=== PATIENT | male | born 1945 | race Caucasian/White ===

== ENCOUNTER 2021-02-19 09:16 | Emergency (ER) | payer MEDICARE, OTHER ==
--- NOTE | 2021-02-19 10:52 | EDM.PDOC ---
ED HPI GENERAL MEDICAL PROBLEM - General Chief Complaint: General Stated Complaint: WEAKNESS Time Seen by Provider: 02/19/21 09:50 Source of Information: Reports: Patient, Family History Limitations: Reports: No Limitations - History of Present Illness INITIAL COMMENTS - FREE TEXT/NARRATIVE: 75-year-old male who underwent a dental procedure 2 days ago, only with local anesthesia, who also has chronic Parkinson's is brought in today by his because of increased tremor, right hip discomfort after falling, and weakness. He also feels like his speech is not right and things just are not normal. He did fall and bumped his head and is on Coumadin, his INR prior to the procedure was 3.7. He ambulated several steps into the wheelchair to come in and look stable. His vitals are normal. He has no nausea and vomiting, no diarrhea, denies any pain other than his right hip. Onset: Unknown/Unsure (Symptoms have kind of evolved over the past 2 days after his dental procedure) Associated Symptoms: Reports: Confusion (Mild intermittent confusion), Headaches (Mild intermittent headaches), Weakness (Especially lower extremities), Other (Increased tremor). Denies: Cough, Fever/Chills, Nausea/Vomiting Right Hip Pain Score (Numeric/FACES): 5 - Related Data Allergies Allergy/AdvReac Type Severity Reaction Status Date / Time Penicillins Allergy Intermediate Hives Verified 08/23/20 08:27 hydrochlorothiazide AdvReac Cough Verified 08/23/20 08:27 [From Prinzide] lisinopril [From Prinzide] AdvReac Cough Verified 08/23/20 08:27 Home Meds: Home Meds ARIPiprazole [Abilify] 15 mg PO BEDTIME 01/22/13 [History] Omeprazole 20 mg PO DAILY 01/22/13 [History] Warfarin Sliding Scale [Coumadin Sliding Scale] 8 mg PO BEDTIME 01/22/13 [History] Gabapentin [Neurontin] 600 mg PO BEDTIME 02/24/13 [History] Naproxen 220 mg PO DAILY PRN 02/24/13 [History] oxyCODONE HCl/Acetaminophen [oxyCODONE-Acetaminophen 5-325] 1 tab PO Q6H PRN 02/24/13 [History] Escitalopram Oxalate [Lexapro] 10 mg PO DAILY 08/23/20 [History] NIFEdipine [Nifedipine ER] 60 mg PO DAILY 08/23/20 [History] Carbidopa/Levodopa [Sinemet 25-100 mg Tablet] 02/19/21 [History] Clindamycin HCl 300 mg PO 02/19/21 [History] Pramipexole Di-HCl [Mirapex] 02/19/21 [History] Social & Family History - Tobacco Use Tobacco Use Status *Q: Never Tobacco User Second Hand Smoke Exposure: No ED ROS GENERAL - Review of Systems Review Of Systems: See Below Constitutional: Reports: Malaise. Denies: Fever, Chills HEENT: Denies: Vision Change Respiratory: Denies: Shortness of Breath Cardiovascular: Denies: Chest Pain GI/Abdominal: Reports: No Symptoms : Reports: No Symptoms Musculoskeletal: Reports: Other (Right hip and groin pain after falling) Skin: Denies: Bruising Neurological: Reports: Confusion, Dizziness, Headache, Weakness, Other (Slight dysarthria or expressive aphasia with increased tremors) Psychiatric: Reports: No Symptoms ED EXAM, GENERAL - Physical Exam Exam: See Below Exam Limited By: No Limitations General Appearance: Alert, No Apparent Distress Head: Atraumatic Neck: Supple, Non-Tender Respiratory/Chest: No Respiratory Distress, Lungs Clear Cardiovascular: Regular Rate, Rhythm GI/Abdominal: Soft, Non-Tender Extremities: Other (Patient has some palpation tenderness over the lateral right hip and the right groin but minimal pain with passive range of motion including internal and external rotation. He can actively flex his hip against gravity without much discomfort) Neurological: Alert, Oriented, No Motor/Sensory Deficits Psychiatric: Normal Affect, Normal Mood Skin Exam: Warm, Dry Course - Vital Signs Last Recorded V/S: Last Vital Signs Temp 98.6 F 02/19/21 09:42 Pulse 83 02/19/21 11:14 Resp 16 02/19/21 09:42 BP 149/92 H 02/19/21 11:14 Pulse Ox 96 02/19/21 11:14 - Orders/Labs/Meds Orders: Active Orders 24 hr Category Date Time Status Pelvis 1V or 2V [CR] Stat Exams 02/19/21 10:05 Taken Labs: Laboratory Tests 02/19/21 02/19/21 02/19/21 Range/Units 10:05 10:55 10:55 WBC 5.8 (4.5-11.0) K/uL RBC 5.41 (4.30-5.90) M/uL Hgb 16.3 H (12.0-15.0) g/dL Hct 44.8 (40.0-54.0) % MCV 83 (80-98) fL MCH 30 (27-31) pg MCHC 36 (32-36) % Plt Count 112 L (150-400) K/uL Neut % (Auto) 81.3 H (36-66) % Lymph % (Auto) 7.9 L (24-44) % [place] % (Auto) 9.6 H (2-6) % Eos % (Auto) 0.7 L (2-4) % Baso % (Auto) 0.5 (0-1) % PT 38.6 H (9.2-10.6) sec INR 3.9 Sodium (140-148) mmol/L Potassium (3.6-5.2) mmol/L Chloride (100-108) mmol/L Carbon Dioxide (21-32) mmol/L Anion Gap (5.0-14.0) mmol/L BUN (7-18) mg/dL Creatinine (0.8-1.3) mg/dL Est Cr Clr Drug Dosing mL/min Estimated GFR (MDRD) (>60) Glucose (74-106) mg/dL Calcium (8.5-10.1) mg/dL Urine Color Yellow (YELLOW) Urine Appearance Clear (CLEAR) Urine pH 5.5 (5.0-8.0) Ur Specific [place] >= 1.030 (1.008-1.030) Urine Protein 100 H (NEGATIVE) mg/dL Urine Glucose (UA) 500 H (NEGATIVE) mg/dL Urine Ketones 15 H (NEGATIVE) mg/dL Urine Occult Blood Negative (NEGATIVE) Urine Nitrite Positive H (NEGATIVE) Urine Bilirubin Small H (NEGATIVE) Urine Urobilinogen 0.2 (0.2-1.0) EU/dL Ur Leukocyte Esterase Negative (NEGATIVE) Urine RBC Not seen (0-5) Urine WBC 0-5 (0-5) Ur Epithelial Cells Rare Amorphous Sediment Few Urine Bacteria Not seen Urine Mucus Rare 02/19/21 Range/Units 10:55 WBC (4.5-11.0) K/uL RBC (4.30-5.90) M/uL Hgb (12.0-15.0) g/dL Hct (40.0-54.0) % MCV (80-98) fL MCH (27-31) pg MCHC (32-36) % Plt Count (150-400) K/uL Neut % (Auto) (36-66) % Lymph % (Auto) (24-44) % [place] % (Auto) (2-6) % Eos % (Auto) (2-4) % Baso % (Auto) (0-1) % PT (9.2-10.6) sec INR Sodium 132 L (140-148) mmol/L Potassium 3.6 (3.6-5.2) mmol/L Chloride 97 L (100-108) mmol/L Carbon Dioxide 28 (21-32) mmol/L Anion Gap 10.6 (5.0-14.0) mmol/L BUN 25 H (7-18) mg/dL Creatinine 1.3 (0.8-1.3) mg/dL Est Cr Clr Drug Dosing 56.34 mL/min Estimated GFR (MDRD) 54 L (>60) Glucose 248 H (74-106) mg/dL Calcium 8.1 L (8.5-10.1) mg/dL Urine Color (YELLOW) Urine Appearance (CLEAR) Urine pH (5.0-8.0) Ur Specific [place] (1.008-1.030) Urine Protein (NEGATIVE) mg/dL Urine Glucose (UA) (NEGATIVE) mg/dL Urine Ketones (NEGATIVE) mg/dL Urine Occult Blood (NEGATIVE) Urine Nitrite (NEGATIVE) Urine Bilirubin (NEGATIVE) Urine Urobilinogen (0.2-1.0) EU/dL Ur Leukocyte Esterase (NEGATIVE) Urine RBC (0-5) Urine WBC (0-5) Ur Epithelial Cells Amorphous Sediment Urine Bacteria Urine Mucus - Re-Assessments/Exams Free Text/Narrative Re-Assessment/Exam: 02/19/21 11:[address] and pelvic x-ray were obtained. Pelvic x-ray is negative, he has a total hip on the right side. He still presented as stable and neurologically intact. Head CT was also normal as follows IMPRESSION: 1. Negative for acute traumatic abnormality. 2. Mild nonspecific cerebral white matter disease which is most likely due to aging/chronic microvascular ischemia. When I informed the patient and his that the above were normal, she had additional occurrence about his hydration status, his dark urine, and his abn ormal INR. CBC and BMP as well as INR were added, UA is pending. 02/19/21 13:08 UA showed no infection, CBC was normal but INR was still elevated at 3.9. I recommended holding his Coumadin 1 night and then resuming his regular dose and rechecking on Sunday. Push fluids and stay hydrated, and return if issues such as bleeding or increased weakness. Departure - Departure Time of Disposition: 11:51 Disposition: Home, Self-Care 01 Clinical Impression: Generalized weakness, Supratherapeutic INR Contusion, hip Qualifiers: Encounter type: initial encounter Laterality: right Qualified Code(s): S70.01XA - Contusion of right hip, initial encounter - Discharge Information Instructions: Weakness Referrals: Sachin Hawkins MD [Primary Care Provider] - Forms: ED Department Discharge Care Plan Goals: Consider holding your Coumadin tonight and resume regular dosage tomorrow and recheck on Sunday. Return anytime if worsening such as active bleeding or increased weakness. Stay hydrated. Increase activity as tolerated. Sepsis Event Note (ED) - Focused Exam Vital Signs: Vital Signs Temp Pulse Resp BP Pulse Ox 02/19/21 11:14 83 149/92 H 96 02/19/21 10:14 83 123/74 02/19/21 09:42 98.6 F 86 16 142/85 H 97 - My Orders Last 24 Hours: My Active Orders 02/19/21 10:05 Pelvis 1V or 2V [CR] Stat - Assessment/Plan Last 24 Hours: My Active Orders 02/19/21 10:05 Pelvis 1V or 2V [CR] Stat
--- NOTE | 2021-02-19 11:07 | CRLCT ---
For Patients: As a result of the Century Cures Act, medical imaging exams and procedure reports are released immediately into your electronic medical record. You may view this report before your referring provider. If you have questions, please contact your health care provider. INDICATION: Fell last night. TECHNIQUE: Scanning of the head was performed without IV contrast material. Coronal and sagittal reconstructions were obtained. COMPARISON: Head MRI of 04/06/2014 FINDINGS: No acute hemorrhage or positive mass effect is demonstrated. No calvarial or obvious facial fracture is identified. The visualized paranasal and mastoid sinuses are clear. The ventricles and other subarachnoid spaces are within normal limits for the patient`s age. There is mild nonspecific decreased attenuation in the cerebral white matter which is most likely due to aging/chronic microvascular ischemic disease. IMPRESSION: 1. Negative for acute traumatic abnormality. 2. Mild nonspecific cerebral white matter disease which is most likely due to aging/chronic microvascular ischemia. Please note that all CT scans at this facility use dose modulation, iterative reconstruction, and/or weight-based dosing when appropriate to reduce radiation dose to as low as reasonably achievable. Dictated by Michel Bravo MD @ 02/19/2021 11:06:10 AM (Electronically Signed)
[2021-02-19 11:14] VITALS: BP 149/92; PULSE 83
--- NOTE | 2021-02-21 09:26 | CR ---
Pelvis 1V or 2V CLINICAL HISTORY: Pain, fall FINDINGS: Patient has a right hip arthroplasty. Components appear well seated. Bones are osteopenic. 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
== END 2021-02-19 11:51 | disposition home or self-care (01) ==
LOC: JP.ED 09:16
DX: S70.01XA Contusion of right hip, initial encounter (principal); R53.1 Weakness; D68.8 Other specified coagulation defects; W19.XXXA Unspecified fall, initial encounter; Z88.0 Allergy status to penicillin; Z88.8 Allergy status to other drugs, medicaments and biological substances; Z79.899 Other long term (current) drug therapy; Z79.01 Long term (current) use of anticoagulants
CPT/HCPCS: 36415; 70450; 72170; 72170-26; 80048; 81001; 85025; 85610; 99285-25

== ENCOUNTER 2021-04-30 15:40 | Emergency (ER) | payer MEDICARE, OTHER ==
[2021-04-30 15:56] VITALS: PULSE 71
[2021-04-30] MEDS ORDERED: Sodium Chloride 0.9% 10 ML Syringe FLUSH PRN (16:46)
[2021-04-30 17:21] VITALS: BP 126/69
[2021-04-30] MEDS ORDERED: Iopamidol 755 Mg/ML 100 ML Bottle IV SCH (17:30)
[2021-04-30] MEDS ORDERED: Sodium Chloride 0.9% 100 ML IV SCH (17:30)
== END 2021-04-30 18:48 | disposition home or self-care (01) ==
LOC: JP.ED 15:40
DX: G45.9 Transient cerebral ischemic attack, unspecified (principal); E11.9 Type 2 diabetes mellitus without complications; Z88.0 Allergy status to penicillin; Z88.8 Allergy status to other drugs, medicaments and biological substances; Z79.01 Long term (current) use of anticoagulants; Z79.899 Other long term (current) drug therapy
CPT/HCPCS: 36415; 70450; 70496; 70498; 80053; 83605; 84484; 85025; 85610; 93005; 99284; Q9967; 93010; 99283

== ENCOUNTER 2021-12-18 12:15 | Emergency (ER) | payer MEDICARE, OTHER | END 2021-12-18 13:08 | disposition home or self-care (01) | LOC: JP.ED 12:15 | DX: S61.452A Open bite of left hand, initial encounter (principal); W55.01XA Bitten by cat, initial encounter | CPT/HCPCS: 99283 ==

== ENCOUNTER 2022-05-18 07:49 | Day surgery (SDC) | payer MEDICARE, OTHER ==
[2022-05-18] MEDS ORDERED: Propofol 200 MG/20 ML SDV ONE ×2 (07:54→10:15)
[2022-05-18] MEDS ORDERED: fentaNYL 100 MCG/2 ML SDV ONE (07:54)
[2022-05-18] MEDS ORDERED: Lactated Ringers 1,000 ML IV SCH (08:15)
[2022-05-18 11:31] VITALS: BP 132/78; PULSE 72
== END 2022-05-18 11:41 | disposition home or self-care (01) ==
LOC: JP.SDS 07:49
PROVIDERS: ATTEND Surgery
DX: Z12.11 Encounter for screening for malignant neoplasm of colon (principal); K57.30 Diverticulosis of large intestine without perforation or abscess without bleeding; K64.9 Unspecified hemorrhoids; G47.33 Obstructive sleep apnea (adult) (pediatric); I71.40 Abdominal aortic aneurysm, without rupture, unspecified; I26.99 Other pulmonary embolism without acute cor pulmonale; F43.10 Post-traumatic stress disorder, unspecified; E11.9 Type 2 diabetes mellitus without complications; Z86.010 Personal history of colon polyps; Z88.8 Allergy status to other drugs, medicaments and biological substances
CPT/HCPCS: 36415; 82947; 85610; G0105; J2704; J3010; J7120

== ENCOUNTER 2022-07-24 12:46 | Emergency (ER) | payer MEDICARE, OTHER ==
[2022-07-24 14:47] VITALS: BP 124/79; PULSE 80
[2022-07-24] MEDS ORDERED: HYDROmorphone 1 MG/ML Syringe IM ONE (15:15)
[2022-07-24 15:20] LABS: BASOPHILS ABSOLUTE AUTO 0.04 K/uL (0.00-0.10); BASOPHILS PERCENT AUTO 0.4 % (0.1-1.3); EOSINOPHILS PERCENT AUTO 2.1 % (0.0-5.4); HEMATOCRIT 48.3 % (38.4-49.7); HEMOGLOBIN 17.4 g/dL (12.9-16.9); IMMATURE GRAN PERCENT AUTO 0.2 % (0.0-0.7); LYMPHOCYTES ABSOLUTE AUTO 1.47 K/uL (0.8-3.3); LYMPHOCYTES PERCENT AUTO 15.3 % (11.4-47.7); MEAN CORPUSCULAR HEMOGLOBIN 29.7 pg (31.6-35.5); MEAN CORPUSCULAR VOLUME 82.6 fL (81.4-99.0); MONOCYTES ABSOLUTE AUTO 0.64 K/uL (0.20-0.90); MONOCYTES PERCENT AUTO 6.7 % (3.3-12.6); NEUTROPHILS ABSOLUTE AUTO 7.24 K/uL (1.0-7.6); NEUTROPHILS PERCENT AUTO 75.3 % (40.0-78.1); PLATELET COUNT,PLT 184 K/uL (130-375); RED BLOOD CELL COUNT 5.85 M/uL (4.14-5.76); WHITE BLOOD CELL COUNT,WBC 9.6 K/uL (3.2-11.0)
[2022-07-24 15:21] LABS: IMMATURE GRAN ABSOLUTE AUTO 0.02 K/uL (0.00-0.23)
[2022-07-24 15:42] LABS: CARBON DIOXIDE,CO2 30 mmol/L (21-32); CHLORIDE,CL 100 mmol/L (100-108); SODIUM,NA 139 mmol/L (140-148)
[2022-07-24 15:43] LABS: A/G RATIO 1.3 (1.2-2.2); ALANINE AMINOTRANSFERASE,ALT 21 U/L (12-78); ALBUMIN 3.8 g/dL (3.4-5.0); ALKALINE PHOSPHATASE 72 U/L (46-116); ASPARTATE AMNIOTRANSFERASE,AST 25 U/L (15-37); BILIRUBIN TOTAL 0.7 mg/dL (0.2-1.0); BLOOD UREA NITROGEN,BUN 18 mg/dL (7-18); CALCIUM 8.9 mg/dL (8.5-10.1); CREATININE 1.2 mg/dL (0.8-1.3); EST CRCL DRUG DOSING (CG) 57.48 mL/min; ESTIMATED GFR 63 mL/min (>60); GLUCOSE RANDOM 159 mg/dL (74-106); PROTEIN TOTAL,TP 6.7 g/dL (6.4-8.2)
[2022-07-24] MEDS ORDERED: Acetaminophen/HYDROcodone 325-5 MG Tab PO ONE (18:21)
[2022-07-24 18:59] LABS: PROTHROMBIN TIME 45.6 sec (9.2-10.6)
== END 2022-07-24 18:49 | disposition home or self-care (01) ==
LOC: JP.ED 12:46
DX: M48.061 Spinal stenosis, lumbar region without neurogenic claudication (principal); M25.551 Pain in right hip; K21.9 Gastro-esophageal reflux disease without esophagitis; E78.00 Pure hypercholesterolemia, unspecified; I10 Essential (primary) hypertension; E11.40 Type 2 diabetes mellitus with diabetic neuropathy, unspecified; Z88.0 Allergy status to penicillin; Z88.8 Allergy status to other drugs, medicaments and biological substances; Z79.899 Other long term (current) drug therapy; Z79.01 Long term (current) use of anticoagulants; Z79.82 Long term (current) use of aspirin; Z86.16 Personal history of COVID-19
CPT/HCPCS: 36415; 72131; 73700; 76377; 80053; 85025; 85610; 86140; 96372; 99283; A9270; J1170

== ENCOUNTER 2022-11-12 16:57 | Emergency (ER) | payer MEDICARE, OTHER ==
[2022-11-12] MEDS ORDERED: Sodium Chloride 0.9% 10 ML Syringe FLUSH PRN (17:04)
[2022-11-12 17:13] VITALS: BP 141/88; PULSE 78
[2022-11-12] MEDS ORDERED: oxyCODONE 5 MG Tab PO ONE (17:13)
[2022-11-12] MEDS ORDERED: fentaNYL 50 MCG/ML SDV IVPUSH ONE (17:16)
[2022-11-12 17:19] LABS: BASOPHILS ABSOLUTE AUTO 0.07 K/uL (0.00-0.10); BASOPHILS PERCENT AUTO 0.7 % (0.1-1.3); EOSINOPHILS PERCENT AUTO 3.2 % (0.0-5.4); HEMATOCRIT 47.5 % (38.4-49.7); HEMOGLOBIN 17.3 g/dL (12.9-16.9); IMMATURE GRAN ABSOLUTE AUTO 0.04 K/uL (0.00-0.23); IMMATURE GRAN PERCENT AUTO 0.4 % (0.0-0.7); LYMPHOCYTES ABSOLUTE AUTO 1.68 K/uL (0.8-3.3); LYMPHOCYTES PERCENT AUTO 17.9 % (11.4-47.7); MEAN CORPUSCULAR HGB CONC 36.4 g/dL (31.6-35.5); MEAN CORPUSCULAR VOLUME 82.3 fL (81.4-99.0); MONOCYTES PERCENT AUTO 6.4 % (3.3-12.6); NEUTROPHILS ABSOLUTE AUTO 6.69 K/uL (1.0-7.6); NEUTROPHILS PERCENT AUTO 71.4 % (40.0-78.1); PLATELET COUNT,PLT 211 K/uL (130-375); RED BLOOD CELL COUNT 5.77 M/uL (4.14-5.76); WHITE BLOOD CELL COUNT,WBC 9.4 K/uL (3.2-11.0)
[2022-11-12] MEDS ORDERED: Sodium Chloride 0.9% 10 ML SDV FLUSH ONE (17:23)
[2022-11-12] MEDS ORDERED: Iopamidol 612 MG/ML 100 ML Bottle IV PRN (17:23)
[2022-11-12 17:36] LABS: ANION GAP 8.2 mmol/L (5.0-14.0); CALCIUM 8.7 mg/dL (8.5-10.1); EST CRCL DRUG DOSING (CG) 71.02 mL/min; POTASSIUM,K 3.8 mmol/L (3.6-5.2)
[2022-11-12 17:38] LABS: INR 2.8; PROTHROMBIN TIME 26.9 sec (9.2-10.6)
== END 2022-11-12 20:48 | disposition home or self-care (01) ==
LOC: JP.ED 16:57
DX: M54.6 Pain in thoracic spine (principal); M48.061 Spinal stenosis, lumbar region without neurogenic claudication; G20 Parkinson's disease; E04.1 Nontoxic single thyroid nodule; K21.9 Gastro-esophageal reflux disease without esophagitis; E11.21 Type 2 diabetes mellitus with diabetic nephropathy; Z88.0 Allergy status to penicillin; Z88.8 Allergy status to other drugs, medicaments and biological substances; Z86.73 Personal history of transient ischemic attack (TIA), and cerebral infarction without residual deficits; Z79.899 Other long term (current) drug therapy; Z86.16 Personal history of COVID-19; Z79.01 Long term (current) use of anticoagulants; W10.8XXA Fall (on) (from) other stairs and steps, initial encounter
CPT/HCPCS: 36415; 70450; 71260; 72125; 76377; 80048; 85025; 85610; 86850; 86900; 86901; 96374; 99284; A9270; J3010; J3490; Q9967

== ENCOUNTER 2024-02-20 13:10 | Emergency (ER) | payer MEDICARE, OTHER ==
[2024-02-20] MEDS ORDERED: Sodium Chloride 0.9% 10 ML Syringe FLUSH PRN (13:24)
[2024-02-20 13:30] LABS: BASOPHILS ABSOLUTE AUTO 0.04 K/uL (0.00-0.10); BASOPHILS PERCENT AUTO 0.5 % (0.1-1.3); EOSINOPHILS ABSOLUTE AUTO 0.26 K/uL (0.00-0.40); HEMATOCRIT 44.7 % (38.4-49.7); IMMATURE GRAN PERCENT AUTO 0.2 % (0.0-0.7); LYMPHOCYTES ABSOLUTE AUTO 1.62 K/uL (0.8-3.3); LYMPHOCYTES PERCENT AUTO 18.8 % (11.4-47.7); MEAN CORPUSCULAR HEMOGLOBIN 25.7 pg (31.6-35.5); MEAN CORPUSCULAR HGB CONC 33.6 g/dL (31.6-35.5); MEAN CORPUSCULAR VOLUME 76.7 fL (81.4-99.0); MONOCYTES ABSOLUTE AUTO 0.48 K/uL (0.20-0.90); MONOCYTES PERCENT AUTO 5.6 % (3.3-12.6); NEUTROPHILS ABSOLUTE AUTO 6.22 K/uL (1.0-7.6); NEUTROPHILS PERCENT AUTO 71.9 % (40.0-78.1); PLATELET COUNT,PLT 177 K/uL (130-375); RED BLOOD CELL COUNT 5.83 M/uL (4.14-5.76); WHITE BLOOD CELL COUNT,WBC 8.6 K/uL (3.2-11.0)
[2024-02-20 13:39] LABS: IMMATURE GRAN ABSOLUTE AUTO 0.02 K/uL (0.00-0.23)
[2024-02-20 13:42] LABS: INR 2.1; PROTHROMBIN TIME 20.6 sec (9.2-10.6); PTT,PARTIAL THROMBOPLSTIN TIME 32.8 sec (21.8-27.3)
[2024-02-20 13:45] LABS: ANION GAP 8.9 mmol/L (5.0-14.0); CALCIUM 8.8 mg/dL (8.5-10.1); CREATININE 1.1 mg/dL (0.8-1.3); EST CRCL DRUG DOSING (CG) 61.73 mL/min; TROPONIN I HIGH SENSITIVITY 20.5 pg/mL (<=60.3)
[2024-02-20] MEDS ORDERED: Iopamidol 755 Mg/ML 100 ML Bottle IV SCH (14:00)
[2024-02-20] MEDS ORDERED: Sodium Chloride 0.9% 100 ML IV SCH (14:00)
[2024-02-20] MEDS: Sodium Chloride 0.9% 1,000 ML IV ONE (14:06)
[2024-02-20] MEDS: Iopamidol 755 Mg/ML 100 ML Bottle IV SCH (14:50)
[2024-02-20] MEDS: Sodium Chloride 0.9% 10 ML Syringe FLUSH ONE (14:51)
[2024-02-20] MEDS: Sodium Chloride 0.9% 100 ML IV SCH (14:51)
[2024-02-20 17:54] VITALS: BP 185/111; PULSE 81
== END 2024-02-20 17:54 ==
LOC: JP.ED 13:10
DX: R47.1 Dysarthria and anarthria (principal); R27.0 Ataxia, unspecified; I10 Essential (primary) hypertension; K21.9 Gastro-esophageal reflux disease without esophagitis; E11.42 Type 2 diabetes mellitus with diabetic polyneuropathy; Z86.73 Personal history of transient ischemic attack (TIA), and cerebral infarction without residual deficits; Z86.16 Personal history of COVID-19; Z96.649 Presence of unspecified artificial hip joint; Z96.659 Presence of unspecified artificial knee joint; Z88.0 Allergy status to penicillin; Z88.8 Allergy status to other drugs, medicaments and biological substances; Z79.01 Long term (current) use of anticoagulants; Z79.82 Long term (current) use of aspirin; Z79.84 Long term (current) use of oral hypoglycemic drugs; Z79.899 Other long term (current) drug therapy
CPT/HCPCS: 36415; 70450; 70496; 70498; 80048; 82947; 84484; 85025; 85610; 85730; 93005; 93010; 96360; 96361; 99285; J3490; J7030; Q9967

== ENCOUNTER 2024-02-23 23:47 | Emergency (ER) | payer MEDICARE, OTHER ==
[2024-02-24 00:18] LABS: BASOPHILS ABSOLUTE AUTO 0.05 K/uL (0.00-0.10); BASOPHILS PERCENT AUTO 0.7 % (0.1-1.3); EOSINOPHILS ABSOLUTE AUTO 0.36 K/uL (0.00-0.40); EOSINOPHILS PERCENT AUTO 4.9 % (0.0-5.4); HEMATOCRIT 37.8 % (38.4-49.7); HEMOGLOBIN 12.9 g/dL (12.9-16.9); IMMATURE GRAN PERCENT AUTO 0.3 % (0.0-0.7); LYMPHOCYTES ABSOLUTE AUTO 1.56 K/uL (0.8-3.3); LYMPHOCYTES PERCENT AUTO 21.4 % (11.4-47.7); MEAN CORPUSCULAR HEMOGLOBIN 26.3 pg (31.6-35.5); MEAN CORPUSCULAR HGB CONC 34.1 g/dL (31.6-35.5); MONOCYTES ABSOLUTE AUTO 0.59 K/uL (0.20-0.90); MONOCYTES PERCENT AUTO 8.1 % (3.3-12.6); NEUTROPHILS ABSOLUTE AUTO 4.72 K/uL (1.0-7.6); NEUTROPHILS PERCENT AUTO 64.6 % (40.0-78.1); PLATELET COUNT,PLT 134 K/uL (130-375); RED BLOOD CELL COUNT 4.91 M/uL (4.14-5.76); WHITE BLOOD CELL COUNT,WBC 7.3 K/uL (3.2-11.0)
[2024-02-24 00:23] LABS: IMMATURE GRAN ABSOLUTE AUTO 0.02 K/uL (0.00-0.23)
[2024-02-24] MEDS: Iopamidol 755 Mg/ML 100 ML Bottle IV SCH (00:33)
[2024-02-24] MEDS: Sodium Chloride 0.9% 10 ML Syringe FLUSH PRN (00:33)
[2024-02-24] MEDS: Sodium Chloride 0.9% 100 ML IV SCH (00:33)
[2024-02-24 00:36] LABS: INR 2.4; PROTHROMBIN TIME 23.7 sec (9.2-10.6)
[2024-02-24 00:44] LABS: ANION GAP 6.2 mmol/L (5.0-14.0); CALCIUM 7.4 mg/dL (8.5-10.1); CREATININE 1.1 mg/dL (0.8-1.3); EST CRCL DRUG DOSING (CG) 63.56 mL/min; POTASSIUM,K 3.6 mmol/L (3.6-5.2); TROPONIN I HIGH SENSITIVITY 22.1 pg/mL (<=60.3)
[2024-02-24 02:13] VITALS: BP 167/88; PULSE 71
== END 2024-02-24 02:00 | disposition home or self-care (01) ==
LOC: JP.ED 23:47
DX: G45.9 Transient cerebral ischemic attack, unspecified (principal); I10 Essential (primary) hypertension; E78.00 Pure hypercholesterolemia, unspecified; K21.9 Gastro-esophageal reflux disease without esophagitis; E11.9 Type 2 diabetes mellitus without complications; Z86.16 Personal history of COVID-19; Z79.899 Other long term (current) drug therapy; Z79.891 Long term (current) use of opiate analgesic; Z79.84 Long term (current) use of oral hypoglycemic drugs; Z88.0 Allergy status to penicillin; Z88.5 Allergy status to narcotic agent; Z88.8 Allergy status to other drugs, medicaments and biological substances
CPT/HCPCS: 36415; 70450; 70496; 70498; 80048; 84484; 85025; 85610; 93005; 99285; J3490; Q9967

== ENCOUNTER 2024-04-29 09:41 | Emergency (ER) | payer MEDICARE, OTHER ==
[2024-04-29 11:32] LABS: BASOPHILS ABSOLUTE AUTO 0.05 K/uL (0.00-0.10); BASOPHILS PERCENT AUTO 0.3 % (0.1-1.3); EOSINOPHILS PERCENT AUTO 0.7 % (0.0-5.4); HEMATOCRIT 40.7 % (38.4-49.7); HEMOGLOBIN 13.5 g/dL (12.9-16.9); IMMATURE GRAN ABSOLUTE AUTO 0.07 K/uL (0.00-0.23); IMMATURE GRAN PERCENT AUTO 0.5 % (0.0-0.7); LYMPHOCYTES ABSOLUTE AUTO 1.32 K/uL (0.8-3.3); LYMPHOCYTES PERCENT AUTO 8.9 % (11.4-47.7); MEAN CORPUSCULAR HEMOGLOBIN 26.9 pg (31.6-35.5); MEAN CORPUSCULAR HGB CONC 33.2 g/dL (31.6-35.5); MEAN CORPUSCULAR VOLUME 81.1 fL (81.4-99.0); MONOCYTES ABSOLUTE AUTO 0.73 K/uL (0.20-0.90); MONOCYTES PERCENT AUTO 4.9 % (3.3-12.6); NEUTROPHILS ABSOLUTE AUTO 12.62 K/uL (1.0-7.6); NEUTROPHILS PERCENT AUTO 84.7 % (40.0-78.1); PLATELET COUNT,PLT 196 K/uL (130-375); RED BLOOD CELL COUNT 5.02 M/uL (4.14-5.76); WHITE BLOOD CELL COUNT,WBC 14.9 K/uL (3.2-11.0)
[2024-04-29 11:48] LABS: CREATININE 1.3 mg/dL (0.8-1.3); EST CRCL DRUG DOSING (CG) 52.93 mL/min; POTASSIUM,K 4.5 mmol/L (3.6-5.2)
[2024-04-29 11:51] LABS: ANION GAP 10.5 mmol/L (5.0-14.0); PROTHROMBIN TIME 39.8 sec (9.2-10.6)
[2024-04-29 11:55] LABS: INR 4.1
[2024-04-29] MEDS: Acetaminophen/HYDROcodone 325-5 MG Tab PO ONE (12:21)
[2024-04-29] MEDS: Tranexamic Acid 1,000 MG/10 ML Vial TOP ONE (12:22)
[2024-04-29 14:38] VITALS: BP 144/87; PULSE 74
== END 2024-04-29 14:15 | disposition home or self-care (01) ==
LOC: JP.ED 09:41
DX: R04.0 Epistaxis (principal); M54.50 Low back pain, unspecified; R79.1 Abnormal coagulation profile; I10 Essential (primary) hypertension; E78.00 Pure hypercholesterolemia, unspecified; K21.9 Gastro-esophageal reflux disease without esophagitis; E11.9 Type 2 diabetes mellitus without complications; Z88.0 Allergy status to penicillin; Z88.8 Allergy status to other drugs, medicaments and biological substances; Z88.6 Allergy status to analgesic agent; Z79.84 Long term (current) use of oral hypoglycemic drugs; Z79.899 Other long term (current) drug therapy; Z79.82 Long term (current) use of aspirin; Z79.891 Long term (current) use of opiate analgesic; Z86.16 Personal history of COVID-19
CPT/HCPCS: 30901; 36415; 72100; 72220; 80048; 85025; 85610; 99284; A9270

== ENCOUNTER 2024-05-06 08:13 | Emergency (ER) | payer MEDICARE, OTHER ==
[2024-05-06 08:55] LABS: INR 2.6; PROTHROMBIN TIME 25.2 sec (9.2-10.6)
[2024-05-06 10:18] VITALS: BP 126/73; PULSE 76
== END 2024-05-06 09:40 | disposition home or self-care (01) ==
LOC: JP.ED 08:13
DX: R04.0 Epistaxis (principal); I10 Essential (primary) hypertension; E78.00 Pure hypercholesterolemia, unspecified; E11.40 Type 2 diabetes mellitus with diabetic neuropathy, unspecified; Z86.73 Personal history of transient ischemic attack (TIA), and cerebral infarction without residual deficits; Z88.0 Allergy status to penicillin; Z88.8 Allergy status to other drugs, medicaments and biological substances; Z88.5 Allergy status to narcotic agent; Z79.01 Long term (current) use of anticoagulants; Z79.899 Other long term (current) drug therapy; Z79.84 Long term (current) use of oral hypoglycemic drugs
CPT/HCPCS: 30901; 36415; 85018; 85610; 99283-25

== ENCOUNTER 2024-10-05 22:12 | Inpatient (IN) | payer MEDICARE, OTHER ==
[2024-10-05 22:19] LABS: BASOPHILS ABSOLUTE AUTO 0.06 K/uL (0.00-0.10); BASOPHILS PERCENT AUTO 0.7 % (0.1-1.3); EOSINOPHILS ABSOLUTE AUTO 0.24 K/uL (0.00-0.40); EOSINOPHILS PERCENT AUTO 2.6 % (0.0-5.4); IMMATURE GRAN ABSOLUTE AUTO 0.04 K/uL (0.00-0.23); IMMATURE GRAN PERCENT AUTO 0.4 % (0.0-0.7); LYMPHOCYTES ABSOLUTE AUTO 2.01 K/uL (0.8-3.3); LYMPHOCYTES PERCENT AUTO 22.1 % (11.4-47.7); MONOCYTES ABSOLUTE AUTO 0.64 K/uL (0.20-0.90); MONOCYTES PERCENT AUTO 7.0 % (3.3-12.6); NEUTROPHILS ABSOLUTE AUTO 6.12 K/uL (1.0-7.6); NEUTROPHILS PERCENT AUTO 67.2 % (40.0-78.1); PLATELET COUNT,PLT 221 K/uL (130-375); RED BLOOD CELL COUNT 5.65 M/uL (4.14-5.76); WHITE BLOOD CELL COUNT,WBC 9.1 K/uL (3.2-11.0)
[2024-10-05 22:43] LABS: INR 3.6
[2024-10-05 22:44] LABS: A/G RATIO 1.4 (1.2-2.2); ALANINE AMINOTRANSFERASE,ALT 31 U/L (12-78); ASPARTATE AMNIOTRANSFERASE,AST 24 U/L (15-37); BILIRUBIN TOTAL 0.7 mg/dL (0.2-1.0); BLOOD UREA NITROGEN,BUN 15 mg/dL (7-18); CARBON DIOXIDE,CO2 26 mmol/L (21-32); CHLORIDE,CL 100 mmol/L (100-108); CREATININE 1.1 mg/dL (0.8-1.3); EST CRCL DRUG DOSING (CG) 60.75 mL/min; ESTIMATED GFR 69 mL/min (>60); GLUCOSE RANDOM 202 mg/dL (74-106); POTASSIUM,K 3.4 mmol/L (3.6-5.2); PROTEIN TOTAL,TP 6.5 g/dL (6.4-8.2); SODIUM,NA 137 mmol/L (140-148); TROPONIN I HIGH SENSITIVITY 38.8 pg/mL (<=60.3)
[2024-10-05 22:54] LABS: APPEARANCE,URINE CLEAR (CLEAR); GLUCOSE,URINE NEGATIVE (NEGATIVE); OCCULT BLOOD,URINE NEGATIVE (NEGATIVE)
[2024-10-05] MEDS: hydrALAZINE 20 MG/ML SDV IVPUSH ONE (22:59)
[2024-10-05 23:00] LABS: SQUAMOUS EPITHELIAL CELLS,UR NOT SEEN /HPF; UROTHELIAL CELLS,URINE NOT SEEN /HPF
[2024-10-05] MEDS: Iopamidol 755 Mg/ML 100 ML Bottle IV SCH (23:59)
[2024-10-06] MEDS: Sodium Chloride 0.9% 10 ML Syringe FLUSH PRN
[2024-10-06] MEDS: hydrALAZINE 20 MG/ML SDV IVPUSH ONE (03:12)
[2024-10-06] MEDS ORDERED: Magnesium Hydroxide 400 MG/5 ML Susp 30 ML Cup PO PRN (04:51)
[2024-10-06] MEDS ORDERED: Ondansetron 4 MG/2 ML SDV IV PRN (04:51)
[2024-10-06] MEDS ORDERED: Ondansetron 4 MG Tab.DIS PO PRN (04:51)
[2024-10-06 05:44] LABS: PLATELET COUNT,PLT 212.0 K/uL (130-375); WHITE BLOOD CELL COUNT,WBC 12.2 K/uL (3.2-11.0)
[2024-10-06 05:58] LABS: RED BLOOD CELL COUNT 5.86 M/uL (4.14-5.76)
[2024-10-06 06:00] LABS: BLOOD UREA NITROGEN,BUN 13.0 mg/dL (7-18); CARBON DIOXIDE,CO2 24.0 mmol/L (21-32); CHLORIDE,CL 103.0 mmol/L (100-108); CREATININE 1.0 mg/dL (0.8-1.3); EST CRCL DRUG DOSING (CG) 66.82 mL/min; ESTIMATED GFR 77.0 mL/min (>60); GLUCOSE RANDOM 161.0 mg/dL (74-106); POTASSIUM,K 3.9 mmol/L (3.6-5.2); SODIUM,NA 140.0 mmol/L (140-148)
[2024-10-06] MEDS: hydrALAZINE 20 MG/ML SDV IVPUSH PRN (07:13)
[2024-10-06] MEDS: Insulin Lispro 100 Unit/ML 3 ML KwikPen SUBCUT SCH (08:19)
[2024-10-06] MEDS ORDERED: Warfarin** 1 MG TABLET PO SCH (12:15)
[2024-10-06] MEDS ORDERED: Non-Formulary Medication 1 Each (Fluorometholone [Fluorometholone 0.1% Ophth Susp] 10 ML B EYEBOTH PRN (15:42)
[2024-10-06] MEDS ORDERED: Sennosides/Docusate Sodium 50-8.6 MG Tab PO PRN (15:42)
[2024-10-06] MEDS ORDERED: Acetaminophen/HYDROcodone 325-5 MG Tab PO PRN (15:42)
[2024-10-06] MEDS ORDERED: Non-Formulary Medication 1 Each (Dulaglutide [Trulicity] 4.5 MG/0.5 ML Pen.Injctr) SUBCUT SCH (15:45)
[2024-10-06] MEDS ORDERED: [UNRECOGNIZED DRUG - OTHER] PO SCH (16:00)
[2024-10-06] MEDS ORDERED: CARBIDOPA PO SCH (16:00)
[2024-10-06] MEDS ORDERED: Non-Formulary Medication 1 Each (Omeprazole [Omeprazole] 20 MG Cap.Sr) PO SCH (16:00)
[2024-10-06] MEDS ORDERED: LEVODOPA PO SCH (16:00)
[2024-10-06] MEDS ORDERED: Fluorometholone 0.1% Ophth Susp 5 ML Bottle EYEBOTH PRN ×2 (16:15→16:19)
[2024-10-06] MEDS: Iopamidol 612 MG/ML 100 ML Bottle IV ONE (16:42)
[2024-10-06] MEDS: Fluticasone NASAL Spray 16 GM Bottle NASBOTH SCH (16:55)
[2024-10-06] MEDS ORDERED: PRAMIPEXOLE DI HCL 0.125 MG PO SCH (21:00)
[2024-10-06] MEDS: Acetaminophen/HYDROcodone 325-5 MG Tab PO SCH (21:01)
[2024-10-07 06:00] LABS: PLATELET COUNT,PLT 182.0 K/uL (130-375); RED BLOOD CELL COUNT 5.11 M/uL (4.14-5.76); WHITE BLOOD CELL COUNT,WBC 8.5 K/uL (3.2-11.0)
[2024-10-07 06:21] LABS: INR 2.0
[2024-10-07] MEDS: LEVODOPA PO SCH (09:33)
[2024-10-07] MEDS: CARBIDOPA PO SCH (09:33)
[2024-10-07] MEDS: Sennosides/Docusate Sodium 50-8.6 MG Tab PO PRN (09:35)
[2024-10-07] MEDS: TRULICITY 4.5 MG/0.5 ML SUBCUT SCH (09:36)
[2024-10-07] MEDS: WARFARIN PO ONE (11:22)
[2024-10-07 11:33] VITALS: BP 117/68; PULSE 98
[2024-10-07] MEDS ORDERED: Non-Formulary Medication 1 Each (Warfarin [Coumadin] 2 MG Tablet) PO SCH (13:00)
[2024-10-08] MEDS ORDERED: WARFARIN PO SCH (13:00)
== END 2024-10-07 13:20 | disposition home or self-care (01) | DRG 69 ==
LOC: JP.ED 22:12 → JP.ICU 10-06 03:54 → OBSVTOIN 10-06 15:45 → JP.MS 10-06 18:47
PROVIDERS: ADMIT Registered Nurse; ATTEND Hospitalist
DX: R29.810 Facial weakness (principal); R47.81 Slurred speech; M62.81 Muscle weakness (generalized); G45.9 Transient cerebral ischemic attack, unspecified; E87.20 Acidosis, unspecified; E78.00 Pure hypercholesterolemia, unspecified; I10 Essential (primary) hypertension; G47.30 Sleep apnea, unspecified; K21.9 Gastro-esophageal reflux disease without esophagitis; M54.9 Dorsalgia, unspecified; F41.9 Anxiety disorder, unspecified; E11.42 Type 2 diabetes mellitus with diabetic polyneuropathy; F43.10 Post-traumatic stress disorder, unspecified; G89.29 Other chronic pain; E11.40 Type 2 diabetes mellitus with diabetic neuropathy, unspecified; Z96.649 Presence of unspecified artificial hip joint; Z96.659 Presence of unspecified artificial knee joint; I71.21 Aneurysm of the ascending aorta, without rupture; I71.40 Abdominal aortic aneurysm, without rupture, unspecified; G20.B1 Parkinson's disease with dyskinesia, without mention of fluctuations; Z86.73 Personal history of transient ischemic attack (TIA), and cerebral infarction without residual deficits; Z85.820 Personal history of malignant melanoma of skin; Z90.89 Acquired absence of other organs; Z98.890 Other specified postprocedural states; Z88.0 Allergy status to penicillin; Z88.1 Allergy status to other antibiotic agents; Z88.8 Allergy status to other drugs, medicaments and biological substances; Z86.711 Personal history of pulmonary embolism; Z79.899 Other long term (current) drug therapy; Z79.01 Long term (current) use of anticoagulants; Z79.84 Long term (current) use of oral hypoglycemic drugs; Z87.891 Personal history of nicotine dependence
CPT/HCPCS: 36415 ×2; 70450; 70496; 70498; 71045 ×2; 74177; 80048; 80053; 81001; 82947 ×2; 83605 ×2; 84484; 85025; 85027; 85610; 96361; 96365; 96366; 96375; 96376; 97162; 99285; A9270 ×7; J0360 ×3; J2404; J7030 ×2; J7050; Q9967; 51798; 97166-GO; 97530-GP; 99222; 99238; G0378

== ENCOUNTER 2025-01-09 13:09 | Inpatient (IN) | payer MEDICARE, OTHER ==
[2025-01-09] MEDS ORDERED: Sodium Chloride 0.9% 10 ML Syringe FLUSH PRN (13:13)
[2025-01-09] MEDS: Sodium Chloride 0.9% 10 ML Syringe FLUSH SCH (13:25)
[2025-01-09 13:26] LABS: BASOPHILS ABSOLUTE AUTO 0.05 K/uL (0.00-0.10); BASOPHILS PERCENT AUTO 0.7 % (0.1-1.3); EOSINOPHILS ABSOLUTE AUTO 0.17 K/uL (0.00-0.40); EOSINOPHILS PERCENT AUTO 2.5 % (0.0-5.4); IMMATURE GRAN PERCENT AUTO 0.3 % (0.0-0.7); LYMPHOCYTES ABSOLUTE AUTO 1.05 K/uL (0.8-3.3); LYMPHOCYTES PERCENT AUTO 15.3 % (11.4-47.7); MONOCYTES ABSOLUTE AUTO 0.51 K/uL (0.20-0.90); MONOCYTES PERCENT AUTO 7.4 % (3.3-12.6); NEUTROPHILS ABSOLUTE AUTO 5.06 K/uL (1.0-7.6); NEUTROPHILS PERCENT AUTO 73.8 % (40.0-78.1); PLATELET COUNT,PLT 195 K/uL (130-375); RED BLOOD CELL COUNT 5.25 M/uL (4.14-5.76); WHITE BLOOD CELL COUNT,WBC 6.9 K/uL (3.2-11.0)
[2025-01-09 13:36] LABS: IMMATURE GRAN ABSOLUTE AUTO 0.02 K/uL (0.00-0.23)
[2025-01-09 13:37] LABS: INR 4.0; PTT,PARTIAL THROMBOPLSTIN TIME 38.5 sec (21.8-27.3)
[2025-01-09 13:41] LABS: A/G RATIO 1.3 (1.2-2.2); ALANINE AMINOTRANSFERASE,ALT 15 U/L (12-78); ASPARTATE AMNIOTRANSFERASE,AST 39 U/L (15-37); BILIRUBIN TOTAL 1.0 mg/dL (0.2-1.0); BLOOD UREA NITROGEN,BUN 11 mg/dL (7-18); CARBON DIOXIDE,CO2 27 mmol/L (21-32); CHLORIDE,CL 105 mmol/L (100-108); CREATININE 0.9 mg/dL (0.8-1.3); EST CRCL DRUG DOSING (CG) 76.45 mL/min; ESTIMATED GFR 87 mL/min (>60); GLUCOSE RANDOM 138 mg/dL (74-106); POTASSIUM,K 4.3 mmol/L (3.6-5.2); PROTEIN TOTAL,TP 5.9 g/dL (6.4-8.2); SODIUM,NA 138 mmol/L (140-148); TROPONIN I HIGH SENSITIVITY 21.8 pg/mL (<=60.3)
[2025-01-09] MEDS ORDERED: Iopamidol 755 Mg/ML 100 ML Bottle IV SCH (13:45)
[2025-01-09] MEDS ORDERED: Sennosides/Docusate Sodium 50-8.6 MG Tab PO PRN (16:29)
[2025-01-09] MEDS ORDERED: Acetaminophen/HYDROcodone 325-5 MG Tab PO PRN (16:29)
[2025-01-09] MEDS ORDERED: Ondansetron 4 MG Tab.DIS PO PRN (16:29)
[2025-01-09] MEDS ORDERED: Magnesium Hydroxide 400 MG/5 ML Susp 30 ML Cup PO PRN (16:29)
[2025-01-09] MEDS: Acetaminophen/HYDROcodone 325-5 MG Tab PO SCH (20:44)
[2025-01-10 06:10] LABS: PLATELET COUNT,PLT 178.0 K/uL (130-375); RED BLOOD CELL COUNT 4.85 M/uL (4.14-5.76); WHITE BLOOD CELL COUNT,WBC 6.1 K/uL (3.2-11.0)
[2025-01-10 06:23] LABS: INR 3.9
[2025-01-10 06:28] LABS: BLOOD UREA NITROGEN,BUN 9 mg/dL (7-18); CARBON DIOXIDE,CO2 27 mmol/L (21-32); CHLORIDE,CL 108 mmol/L (100-108); CREATININE 0.9 mg/dL (0.8-1.3); EST CRCL DRUG DOSING (CG) 76.45 mL/min; ESTIMATED GFR 87 mL/min (>60); GLUCOSE RANDOM 115 mg/dL (74-106); POTASSIUM,K 4.2 mmol/L (3.6-5.2); SODIUM,NA 142 mmol/L (140-148)
[2025-01-10] MEDS: Ondansetron 4 MG/2 ML SDV IV PRN (12:10)
[2025-01-10 13:19] VITALS: BP 146/90; PULSE 61
== END 2025-01-10 13:27 | disposition home or self-care (01) | DRG 641 ==
LOC: JP.ED 13:09 → JP.MS 15:58
PROVIDERS: ADMIT Internal Medicine; ATTEND Internal Medicine
DX: E86.0 Dehydration (principal); I48.0 Paroxysmal atrial fibrillation; G20.B1 Parkinson's disease with dyskinesia, without mention of fluctuations; E78.00 Pure hypercholesterolemia, unspecified; I10 Essential (primary) hypertension; K21.9 Gastro-esophageal reflux disease without esophagitis; G47.30 Sleep apnea, unspecified; Z66 Do not resuscitate; E11.9 Type 2 diabetes mellitus without complications; Z96.659 Presence of unspecified artificial knee joint; Z96.649 Presence of unspecified artificial hip joint; F43.10 Post-traumatic stress disorder, unspecified; F41.9 Anxiety disorder, unspecified; Z86.73 Personal history of transient ischemic attack (TIA), and cerebral infarction without residual deficits; Z79.01 Long term (current) use of anticoagulants; Z79.899 Other long term (current) drug therapy; Z79.891 Long term (current) use of opiate analgesic; Z86.711 Personal history of pulmonary embolism; Z88.0 Allergy status to penicillin; Z88.8 Allergy status to other drugs, medicaments and biological substances; Z85.820 Personal history of malignant melanoma of skin; Z98.890 Other specified postprocedural states; Z86.718 Personal history of other venous thrombosis and embolism; Z90.89 Acquired absence of other organs
CPT/HCPCS: 36415; 70450; 70450-26; 70496; 70496-26; 70498; 70498-26; 80048; 80053; 82947; 84484; 85025; 85027; 85610; 85730; 86140; 93005; 93010; 96360; 96361; 99223; 99238; 99285; 99285-25; A9270-GY; J2405; J7030

== ENCOUNTER 2025-01-14 00:25 | Emergency (ER) | payer MEDICARE, OTHER ==
[2025-01-14 00:58] LABS: BASOPHILS ABSOLUTE AUTO 0.05 K/uL (0.00-0.10); BASOPHILS PERCENT AUTO 0.7 % (0.1-1.3); EOSINOPHILS ABSOLUTE AUTO 0.20 K/uL (0.00-0.40); EOSINOPHILS PERCENT AUTO 2.9 % (0.0-5.4); IMMATURE GRAN PERCENT AUTO 0.3 % (0.0-0.7); LYMPHOCYTES ABSOLUTE AUTO 1.46 K/uL (0.8-3.3); LYMPHOCYTES PERCENT AUTO 21.5 % (11.4-47.7); MONOCYTES ABSOLUTE AUTO 0.62 K/uL (0.20-0.90); MONOCYTES PERCENT AUTO 9.1 % (3.3-12.6); NEUTROPHILS ABSOLUTE AUTO 4.44 K/uL (1.0-7.6); NEUTROPHILS PERCENT AUTO 65.5 % (40.0-78.1); PLATELET COUNT,PLT 199 K/uL (130-375); WHITE BLOOD CELL COUNT,WBC 6.8 K/uL (3.2-11.0)
[2025-01-14 01:06] LABS: IMMATURE GRAN ABSOLUTE AUTO 0.02 K/uL (0.00-0.23); INR 3.0; RED BLOOD CELL COUNT 5.09 M/uL (4.14-5.76)
[2025-01-14 01:08] LABS: A/G RATIO 1.1 (1.2-2.2); ALANINE AMINOTRANSFERASE,ALT 10 U/L (12-78); ASPARTATE AMNIOTRANSFERASE,AST 16 U/L (15-37); BILIRUBIN TOTAL 1.0 mg/dL (0.2-1.0); BLOOD UREA NITROGEN,BUN 9 mg/dL (7-18); CARBON DIOXIDE,CO2 30 mmol/L (21-32); CHLORIDE,CL 103 mmol/L (100-108); CREATININE 1.0 mg/dL (0.8-1.3); EST CRCL DRUG DOSING (CG) 68.80 mL/min; ESTIMATED GFR 77 mL/min (>60); GLUCOSE RANDOM 139 mg/dL (74-106); POTASSIUM,K 3.7 mmol/L (3.6-5.2); PROTEIN TOTAL,TP 6.0 g/dL (6.4-8.2); SODIUM,NA 139 mmol/L (140-148)
[2025-01-14 01:48] LABS: IRON,FE 19 ug/dL (65-175); PERCENT FE SATURATION 5 % (20-55)
[2025-01-14 02:02] VITALS: BP 165/90; PULSE 66
== END 2025-01-14 02:48 | disposition home or self-care (01) ==
LOC: JP.ED 00:25
DX: G45.9 Transient cerebral ischemic attack, unspecified (principal); G20.A1 Parkinson's disease without dyskinesia, without mention of fluctuations; D64.89 Other specified anemias; E78.00 Pure hypercholesterolemia, unspecified; I10 Essential (primary) hypertension; K21.9 Gastro-esophageal reflux disease without esophagitis; E11.40 Type 2 diabetes mellitus with diabetic neuropathy, unspecified; I49.8 Other specified cardiac arrhythmias; Z88.8 Allergy status to other drugs, medicaments and biological substances; Z88.0 Allergy status to penicillin; Z79.899 Other long term (current) drug therapy
CPT/HCPCS: 36415; 70450; 80053; 82947; 83550; 85025; 85610; 93005; 93010; 99284; 99285